=== PATIENT | female | born 1990 | race Caucasian/White ===

== ENCOUNTER 2016-11-28 01:53 | Emergency (ER) | payer MEDICAID ==
[~2016-11-28] VITALS: Ht 180.3 cm; Wt 109.0 kg
[~2016-11-28 01:53] MED LIST: CLON0.5T PO; FLUO40CA9 PO; MOME13HF2 INH; ONDA4TAB7 PO; QUET50TA5 PO; RANI150C PO; ZOLP10TA PO
[2016-11-28 02:02] VITALS: BP 124/83
[2016-11-28 02:24] LABS: DAU SCREEN DISCLAIMER
[2016-11-28 02:24] LABS: HEMOGLOBIN 16.6 g/dL (11.7-16.4)
[2016-11-28 02:36] LABS: ASPARTATE AMINO TRANSFERASE 31 U/L (15-37); BLOOD UREA NITROGEN 9 mg/dL (7-18)
[2016-11-28 02:42] LABS: ACETAMINOPHEN < 2 mcg/mL (10-30)
[2016-11-28] MEDS ORDERED: GABA800T PO (02:42)
== END 2016-11-28 08:05 | disposition home or self-care (01) ==
LOC: ED 02:54
DX: F32.9 Major depressive disorder, single episode, unspecified (principal); F10.10 Alcohol abuse, uncomplicated; X78.8XXA Intentional self-harm by other sharp object, initial encounter; Y93.89 Activity, other specified; Y99.8 Other external cause status; Y92.89 Other specified places as the place of occurrence of the external cause
CPT/HCPCS: 36415; 80053; 80307; 80329; 84703; 85025; 99284; G0480